=== PATIENT | male | born 1970 | race Caucasian/White ===

== ENCOUNTER 2016-06-26 12:24 | Emergency (ER) | payer BC ==
[~2016-06-26] VITALS: Ht 180.3 cm; Wt 74.8 kg
[2016-06-26 12:30] VITALS: BP 122/68
--- NOTE | 2016-06-26 12:44 | PHYS DOC ---
Past Medical History Past Medical History: Pneumonia Past Surgical History: Appendectomy Alcohol Use: Rarely Drug Use: Marijuana Adult General Chief Complaint Chief Complaint: ABDOMINAL PAIN HPI HPI 46-year-old HIV positive male presenting with ongoing left lower quadrant pain and nausea vomiting diarrhea for the last week. Patient states he is having loose mucus stools but no blood. He denies any recent travel or anabolic use. He states his last CD4 count was over 1000 and he had a nondetectable viral load. He follows up with infectious disease at [facility]. He is compliant with his antiviral medications. He is additionally taking acyclovir for an ongoing herpetic infection around his mouth. He is had little to eat or drink with his GI illness. He rates his pain a 7 out of 10 localized primarily to the left lower quadrant. He states his last hospitalization was 3 years ago for pneumonia. He denies any shortness of breath. He denies any respiratory illnesses. Currently the patient is fully alert and oriented and able to answer all my questions and in no signs of distress. Review of Systems Review of Systems Constitutional: Denies fever or chills [] Eyes: Denies change in visual acuity, redness, or eye pain [] HENT: Denies nasal congestion or sore throat [] Respiratory: Denies cough or shortness of breath [] Cardiovascular: No additional information not addressed in HPI [] GI: Denies abdominal pain, has nausea, has vomiting, denies bloody stools, has diarrhea [] : Denies dysuria or hematuria [] Musculoskeletal: Denies back pain or joint pain [] Integument: Denies rash or skin lesions [] Neurologic: Denies headache, focal weakness or sensory changes [] Endocrine: Denies polyuria or polydipsia [] Current Medications Current Medications Current Medications Medications (Trade) Dose Ordered Sig/Blossom Start Time Stop Time Status Last Admin Dose Admin Fentanyl Citrate (Fentanyl 2ml Vial) 50 mcg 1X ONCE 06/26/16 12:45 06/26/16 12:46 DC 06/26/16 13:10 50 MCG Ondansetron HCl 4 mg 4 mg 1X ONCE 06/26/16 12:45 06/26/16 12:46 DC 06/26/16 13:07 4 MG Sodium Chloride (Iv Sodium Chloride 0.9% 1000ml Bag) 1,000 ml @ 1,000 mls/hr 1X ONCE 06/26/16 12:45 06/26/16 13:44 DC 06/26/16 13:07 1,000 MLS/HR Allergies Allergies Allergies Coded Allergies Type Severity Reaction Last Updated Verified No Known Drug Allergies 04/30/13 No Physical Exam Physical Exam Constitutional: Well developed, well nourished, no acute distress, non-toxic appearance. [] HENT: Normocephalic, atraumatic, bilateral external ears normal, oropharynx moist, no oral exudates, nose normal. [] Eyes: PERRLA, EOMI, conjunctiva normal, no discharge. [] Neck: Normal range of motion, no tenderness, supple, no stridor. [] Cardiovascular:Heart rate regular rhythm, no murmur [] Lungs & Thorax: Bilateral breath sounds clear to auscultation [] Abdomen: Bowel sounds normal, soft, moderate LLQ tenderness, no masses, no pulsatile masses. [] Skin: Warm, dry, no erythema, no rash. [] Back: No tenderness, no CVA tenderness. [] Extremities: No tenderness, no cyanosis, no clubbing, ROM intact, no edema. [] Neurologic: Alert and oriented X 3, normal motor function, normal sensory function, no focal deficits noted. [] Psychologic: Affect normal, judgement normal, mood normal. [] Current Patient Data Vital Signs Vital Signs Date Time Temp Pulse Resp B/P Pulse Ox O2 Delivery O2 Flow Rate FiO2 06/26/16 13:10 19 06/26/16 12:30 98.1 88 122/68 96 Room Air 98.1 Lab Values Laboratory Tests Test 06/26/16 12:42 White Blood Count 9.9x10^3/uL (4.0-11.0) Red Blood Count 4.64x10^6/uL (4.30-5.70) Hemoglobin 14.3g/dL (13.0-17.5) Hematocrit 43.1% (39.0-53.0) Mean Corpuscular Volume 93fL (79-100) Mean Corpuscular Hemoglobin 31pg (25-35) Mean Corpuscular Hemoglobin Concent 33g/dL (31-37) Red Cell Distribution Width 12.1% (11.5-14.5) Platelet Count 204x10^3/uL (140-400) Neutrophils (%) (Auto) 57% (31-73) Lymphocytes (%) (Auto) 24% (24-48) Monocytes (%) (Auto) 14% (0-9) H Eosinophils (%) (Auto) 4% (0-3) H Basophils (%) (Auto) 1% (0-3) Neutrophils # (Auto) 5.7x10^3uL (1.8-7.7) Lymphocytes # (Auto) 2.4x10^3/uL (1.0-4.8) Monocytes # (Auto) 1.4x10^3/uL (0.0-1.1) H Eosinophils # (Auto) 0.4x10^3/uL (0.0-0.7) Basophils # (Auto) 0.1x10^3/uL (0.0-0.2) Sodium Level 138mmol/L (136-145) Potassium Level 3.2mmol/L (3.5-5.1) L Chloride Level 99mmol/L (98-107) Carbon Dioxide Level 31mmol/L (21-32) Anion Gap 8 (6-14) Blood Urea Nitrogen 10mg/dL (8-26) Creatinine 1.2mg/dL (0.7-1.3) Estimated GFR (Cockcroft-Gault) 65.5 BUN/Creatinine Ratio 8 (6-20) Glucose Level 118mg/dL (70-99) H Calcium Level 8.4mg/dL (8.5-10.1) L Total Bilirubin 0.4mg/dL (0.2-1.0) Aspartate Amino Transferase (AST) 13U/L (15-37) L Alanine Aminotransferase (ALT) 9U/L (16-63) L Alkaline Phosphatase 71U/L (46-116) Total Protein 7.4g/dL (6.4-8.2) Albumin 2.9g/dL (3.4-5.0) L Albumin/Globulin Ratio 0.6 (1.0-1.7) L Lipase 135U/L (73-393) Laboratory Tests 06/26/16 12:42 Laboratory Tests 06/26/16 12:42 EKG EKG [] Radiology/Procedures Radiology/Procedures CT of the abdomen/pelvis without contrast demonstrates the following: FINDINGS: Evaluation of the lower thorax demonstrates a 1.6 cm nodular opacity containing calcifications within the left lower lobe. There is surrounding atelectasis or scarring. There is also right basilar atelectasis or scarring. There is no effusion or infiltrate. There is hepatosplenomegaly. The gallbladder, pancreas, due to glands and kidneys are unremarkable. The appendix is surgically absent. There are prominent fluid filled loops of small bowel within the abdomen, without a transition point to suggest obstruction. There is mucosal thickening with surrounding stranding involving the colon, primarily the cecum and proximal ascending colon and the descending and sigmoid colon. No pathologically enlarged lymph node is seen. There is a small fat-containing umbilical hernia. There is no suspicious osseous lesion. Course & Med Decision Making Course & Med Decision Making Pertinent Labs and Imaging studies reviewed. (See chart for details) This 46-year-old male with known HIV but no other known medical problems will receive an IV fluid bolus and laboratory workup as well as some imaging of his abdomen for his ongoing pain that he's had for the last week. If I can rule out any acute cause of his symptoms his symptoms are likely related to her ongoing GI illness. Due to the fact that he has a nondetectable viral load and a excellent CD4 count and is afebrile I do not believe he will need a hospital stay if his laboratory workup is negative. I will also be given him in a dose of pain meds here to control his abdominal pain. His laboratory workup was otherwise negative. He has been well hydrated with a fluid bolus, zofran, and fentanyl. His CT of his abdomen does show findings consistent with a segmental colitis but no other acute findings. His pain was well-controlled and he is tolerating PO intake. I will be prescribing a course of Cipro and Flagyl with pain control and nausea control strict instruction return the next several days if he is unable to tolerate his medications. He may require admission at that time. He'll follow closely with his infectious disease doctor in the next several days [facility]. My final reassessment , the patient was fully nontoxic in appearance and very agreeable with this plan. The fact that his CD4 count is excellent I believe this is an appropriate plan at this time. Dragon Disclaimer Dragon Disclaimer This electronic medical record was generated, in whole or in part, using a voice recognition dictation system. Departure Departure Impression: Primary Impression: Colitis Additional Impressions: Nausea & vomiting Diarrhea Disposition: 01 HOME, SELF-CARE Admitting Physician: Other Condition: STABLE Referrals: NON,STAFF (PCP) Patient Instructions: Colitis, Diarrhea, [id number] Additional Instructions: Please take your medications as prescribed. Return to the ER if you develop any worsening of your symptoms over the next 48 hours or have inability to tolerate your medications or stay hydrated. Continue to drink plenty of fluids. Follow up with your primary doctor in the next 2-3 days as discussed. Scripts Ondansetron Hcl (Zofran)4 Mg Tablet1 Tab PO Q8HRS #14 TAB Prov:BIANCA COBURN DO 06/26/16 Hydrocodone/Apap 5-325 ([place] 5-325 Tablet)1 Each Tablet1 Tab PO PRN Q6HRS PRN PAIN #14 TAB Ref 0 Prov:BIANCA COBURN DO 06/26/16 Metronidazole (Flagyl)500 Mg Tablet1 Tab PO BID #14 TAB Prov:BIANCA COBURN DO 06/26/16 Ciprofloxacin Hcl 500 Mg Tablet1 Tab PO BID #14 TAB Prov:BIANCA COBURN DO 06/26/16 Problem Qualifiers BIANCA COBURN DO Jun 26, 2016 12:44
[2016-06-26] MEDS ORDERED: IV NORMAL SALINE 1000ML BAG 1,000 ML IV ONE (12:45)
[2016-06-26] MEDS ORDERED: FENTANYL PF 100 MCG/2 ML VIAL. IV ONE (12:45)
[2016-06-26] MEDS ORDERED: ONDANSETRON PF 4 MG/2 ML VIAL. IV ONE (12:45)
[2016-06-26 12:59] LABS: BASO # 0.1 x10^3/uL (0.0-0.2); BASO % 1 % (0-3); EOS % 4 % (0-3); HEMATOCRIT 43.1 % (39.0-53.0); HEMOGLOBIN 14.3 g/dL (13.0-17.5); LYMPH # 2.4 x10^3/uL (1.0-4.8); LYMPH % 24 % (24-48); MEAN CORPUSCULAR HEMOGLOBIN 31 pg (25-35); MEAN CORPUSCULAR HGB CONC 33 g/dL (31-37); MEAN CORPUSCULAR VOLUME 93 fL (79-100); MONO % 14 % (0-9); NEUT % 57 % (31-73); PLATELET COUNT 204 x10^3/uL (140-400); RED BLOOD COUNT 4.64 x10^6/uL (4.30-5.70); RED CELL DISTRIBUTION WIDTH 12.1 % (11.5-14.5); WHITE BLOOD COUNT 9.9 x10^3/uL (4.0-11.0)
[2016-06-26 13:02] LABS: CALCIUM 8.4 mg/dL (8.5-10.1); CREATININE 1.2 mg/dL (0.7-1.3); GFR 65.5; POTASSIUM 3.2 mmol/L (3.5-5.1)
[2016-06-26 13:08] LABS: ALBUMIN 2.9 g/dL (3.4-5.0); ALBUMIN/GLOBULIN RATIO 0.6 (1.0-1.7); TOTAL BILIRUBIN 0.4 mg/dL (0.2-1.0); TOTAL PROTEIN 7.4 g/dL (6.4-8.2)
--- NOTE | 2016-06-26 13:16 | RAD ---
EXAM: Abdomen and pelvis CT without intravenous contrast. HISTORY: Pain. TECHNIQUE: Computed tomographic images of the abdomen and pelvis were obtained without contrast. Multiplanar reformatting was performed. COMPARISON: Chest CT dated 09/21/2012. FINDINGS: Evaluation of the lower thorax demonstrates a 1.6 cm nodular opacity containing calcifications within the left lower lobe. There is surrounding atelectasis or scarring. There is also right basilar atelectasis or scarring. There is no effusion or infiltrate. There is hepatosplenomegaly. The gallbladder, pancreas, due to glands and kidneys are unremarkable. The appendix is surgically absent. There are prominent fluid filled loops of small bowel within the abdomen, without a transition point to suggest obstruction. There is mucosal thickening with surrounding stranding involving the colon, primarily the cecum and proximal ascending colon and the descending and sigmoid colon. No pathologically enlarged lymph node is seen. There is a small fat-containing umbilical hernia. There is no suspicious osseous lesion. IMPRESSION: 1. Segmental colonic wall thickening with pericolonic stranding primarily involving the proximal and distal colon. This suggests infectious colitis or inflammatory bowel disease. This is difficult to assess in the absence of oral and intravenous contrast. 2. Hepatosplenomegaly. 3. 1.6 cm nodular opacity containing calcifications within the left lower lobe. The presence of this finding and interval calcification compared to a CT dated 09/21/2012 favors benignity. PQRS Compliance Statement: One or more of the following individualized dose reduction techniques were utilized for this examination: 1. Automated exposure control 2. Adjustment of the mA and/or kV according to patient size 3. Use of iterative reconstruction technique
[2016-06-26] MEDS ORDERED: METR500T PO (14:17)
[2016-06-26] MEDS ORDERED: ONDA4TAB7 PO (14:17)
[2016-06-26] MEDS ORDERED: CIPR500T PO (14:17)
[2016-06-26] MEDS ORDERED: HYDR-971 PO (14:17)
== END 2016-06-26 14:40 | disposition home or self-care (01) ==
LOC: ER 12:24
DX: K52.9 Noninfective gastroenteritis and colitis, unspecified (principal); F12.10 Cannabis abuse, uncomplicated; Z90.49 Acquired absence of other specified parts of digestive tract; Z21 Asymptomatic human immunodeficiency virus [HIV] infection status
CPT/HCPCS: 36415; 74176; 80053; 83690; 85027; 96361; 96374; 96375; 99285; J2405; J3010; J7030